=== PATIENT | male | born 1945 ===

== ENCOUNTER 2018-11-24 06:30 | Day surgery (SDC) | payer OTHER ==
[~2018-11-24 06:30] MED LIST: ASPIRIN81 M1 PO; ATORVASTATIN CA10 MG PO; LISINOPRIL10 MG PO
== END 2018-11-24 18:10 | disposition home or self-care (01) ==
LOC: CIR.AMB 06:30
DX: M72.0 Palmar fascial fibromatosis [Dupuytren] (principal)